=== PATIENT | female | born 1990 | race Caucasian/White ===

== ENCOUNTER → 2020-01-01 07:56 | Outpatient (CLI) | payer BC, SELFPAY ==
--- NOTE | 2020-01-01 | DI.US.S_ITS ---
PROCEDURE: US OB <= 14 WEEKS FETUS INDICATIONS: INITIAL SIZING AND DATING OUTSIDE/PRIOR DATING DATA: Last menstrual period (LMP): 11/15/19. LMP-based estimated date of delivery (CHRIS): 08/21/20 . First dating scan (date and location): This study, 01/01/20 . Estimated date of delivery (CHRIS) from first dating scan: 08/28/20, +/-7 days based on mean sac diameter . TECHNIQUE: Real-time scanning was performed of the fetus and maternal pelvic organs, with image documentation. Endovaginal scanning was also performed to better visualize the fetus and maternal ovaries. COMPARISON: None. FINDINGS: Mean sac diameter is 1.0 cm which correlates with a gestational age of 5 weeks 5 days, +/-7 days. Chorionic reaction is present at the endometrial lining. Embryo: Not yet seen. Measurement variability in dating: +/- 4 weeks by LMP, +/- 7 days by mean sac diameter (use before 6 weeks gestation if crown-rump length not able to be measured), +/- 5 days by crown-rump length (up to 8 weeks 6 days gestation), +/- 7 days by crown-rump length (up to 13 weeks 6 days gestation). Maternal organs: Ovaries appear normal considering gestational status. Limited images through the kidneys demonstrate no hydronephrosis. IMPRESSION: Gestational sac present, intrauterine fetus has not yet been identified. Follow up in 7-10 days is recommended. Dictated by: Richard Amador M.D. on 01/01/2020 at 13:33 Approved by: Richard Amador M.D. on 01/01/2020 at 13:51
== END ==
PROVIDERS: Family Provider Family Medicine; PCP Family Medicine; Referring Provider Family Medicine; Visit Provider Family Medicine
DX: Z36.87 Encounter for antenatal screening for uncertain dates (principal)
CPT/HCPCS: 76801

== ENCOUNTER → 2020-01-13 10:58 | Outpatient (CLI) | payer BC, SELFPAY ==
--- NOTE | 2020-01-13 | DI.US.S_ITS ---
PROCEDURE: US OB <= 14 WEEKS FETUS INDICATIONS: FOLLOW UP INITIAL SIZING AND DATING OUTSIDE/PRIOR DATING DATA: Last menstrual period (LMP): November 15, 2019. LMP-based estimated date of delivery (CHRIS): August 21, 2020 . First dating scan (date and location): January 01, 2020 . Estimated date of delivery (CHRIS) from first dating scan: August 28, 2020 . TECHNIQUE: Real-time scanning was performed of the fetus and maternal pelvic organs, with image documentation. Endovaginal scanning was also performed to better visualize the fetus and maternal ovaries. COMPARISON: [facility], OB <= 14 WEEKS FETUS, 01/01/2020, 8:40. FINDINGS: Embryo: There is a single intrauterine gestation with an estimated sonographic gestational age of approximately 6 weeks and 5 days based off mean gestational sac diameter of 1.8 cm. No crown-rump length/ pole identified. No yolk sac visualized. No perigestational hemorrhage. No cardiac activity visualized. Measurement variability in dating: +/- 4 weeks by LMP, +/- 7 days by mean sac diameter (use before 6 weeks gestation if crown-rump length not able to be measured), +/- 5 days by crown-rump length (up to 8 weeks 6 days gestation), +/- 7 days by crown-rump length (up to 13 weeks 6 days gestation). Maternal organs: A left corpus luteal cyst is again noted. Ovaries are otherwise unremarkable in appearance. Limited images through the kidneys demonstrate no hydronephrosis. IMPRESSION: 1. Single intrauterine gestation measuring approximately 6 weeks and 5 days based off mean gestational sac diameter. No pole, yolk sac, or cardiac activity visualized. Based on consensus criteria, findings are suspicious but not diagnostic for early failure. Recommend continued clinical surveillance and serial quantitative HCG levels to document expected rate of change. Follow-up imaging as needed. 2. Redemonstration of left ovarian corpus luteal cyst. Otherwise, unremarkable sonographic appearance of the bilateral ovaries. Dictated by: Maximino Franco M.D. on 01/13/2020 at 16:43 Approved by: Maximino Franco M.D. on 01/13/2020 at 16:49
== END ==
PROVIDERS: Family Provider Family Medicine; PCP Family Medicine; Referring Provider Family Medicine; Visit Provider Family Medicine
DX: Z36.87 Encounter for antenatal screening for uncertain dates (principal); N83.12 Corpus luteum cyst of left ovary
CPT/HCPCS: 76801

== ENCOUNTER → 2020-05-26 08:01 | Outpatient (CLI) | payer BC, SELFPAY ==
--- NOTE | 2020-05-26 | DI.US.S_ITS ---
PROCEDURE: US OB <= 14 WEEKS FETUS INDICATIONS: SIZE AND DATES OUTSIDE/PRIOR DATING DATA: Last menstrual period (LMP): 03/22/2020. LMP-based estimated date of delivery (CHRIS): 12/27/2020. First dating scan (date and location): 05/26/2020. Estimated date of delivery (CHRIS) from first dating scan: 01/18/2021. TECHNIQUE: Real-time scanning was performed of the fetus and maternal pelvic organs, with image documentation. Endovaginal scanning was also performed to better visualize the fetus and maternal ovaries. COMPARISON: [facility], OB <= 14 WEEKS FETUS, 01/13/2020, 11:51. FINDINGS: Embryo: Single intrauterine with crown-rump length measuring 4 mm corresponding to 6 weeks 1 day. heart tones are not identified. Measurement variability in dating: +/- 4 weeks by LMP, +/- 7 days by mean sac diameter (use before 6 weeks gestation if crown-rump length not able to be measured), +/- 5 days by crown-rump length (up to 8 weeks 6 days gestation), +/- 7 days by crown-rump length (up to 13 weeks 6 days gestation). Maternal organs: Ovaries demonstrate a right corpus luteal cyst. . IMPRESSION: Intrauterine with crown-rump length measuring 6 weeks 1 day. No heart tones are identified. While this could represent borderline time frame for detection of heart tones, demise cannot be excluded. Recommend correlation beta-hCG levels and short interval imaging follow-up in 5-7 days for detection of heart tone presence. Dictated by: Shakila Fernandez M.D. on 05/26/2020 at 9:05 Approved by: Shakila Fernandez M.D. on 05/26/2020 at 9:08
== END ==
PROVIDERS: PCP Family Medicine; Referring Provider Family Medicine; Visit Provider Family Medicine
DX: Z36.87 Encounter for antenatal screening for uncertain dates (principal); Z3A.01 Less than 8 weeks gestation of pregnancy
CPT/HCPCS: 76801; 76817

== ENCOUNTER → 2020-06-02 14:36 | Outpatient (CLI) | payer BC, SELFPAY ==
--- NOTE | 2020-06-02 | DI.US.S_ITS ---
PROCEDURE: US OB <= 14 WEEKS FETUS INDICATIONS: VIABILITY OUTSIDE/PRIOR DATING DATA: Last menstrual period (LMP): 03/22/20 LMP-based estimated date of delivery (CHRIS): 12/27/20. First dating scan (date and location): 05/26/20. Estimated date of delivery (CHRIS) from first dating scan: demise.. TECHNIQUE: Real-time scanning was performed of the fetus and maternal pelvic organs, with image documentation. Endovaginal scanning was also performed to better visualize the fetus and maternal ovaries. COMPARISON: [facility], OB <= 14 WEEKS FETUS, 05/26/2020, 8:42. [facility], OB <= 14 WEEKS FETUS, 01/13/2020, 11:51. FINDINGS: Embryo: Old [place]-rump length measures 0.4 cm, unchanged from the prior study. Current estimated gestational age by initial ultrasound is 7 weeks 1 day but crown-rump length yields an estimated current gestational age of 6 weeks 0 days, and the absence of cardiac activity and absence of growth over time indicates demise. Measurement variability in dating: +/- 4 weeks by LMP, +/- 7 days by mean sac diameter (use before 6 weeks gestation if crown-rump length not able to be measured), +/- 5 days by crown-rump length (up to 8 weeks 6 days gestation), +/- 7 days by crown-rump length (up to 13 weeks 6 days gestation). Maternal organs: Normal IMPRESSION: demise with current estimated gestational age from crown-rump length at 6.0 weeks, versus is projected gestational age from 1st OB ultrasound of 7 weeks 1 day. Dictated by: Richard Amador M.D. on 06/02/2020 at 16:02 Approved by: Richard Amador M.D. on 06/02/2020 at 16:04
== END ==
PROVIDERS: PCP Family Medicine; Referring Provider Family Medicine; Visit Provider Family Medicine
DX: O02.1 Missed abortion (principal)
CPT/HCPCS: 76801; 76817

== ENCOUNTER → 2020-09-14 12:38 | Outpatient (CLI) | payer BC, SELFPAY ==
--- NOTE | 2020-09-14 | DI.US.S_ITS ---
PROCEDURE: US PELVIC COMPLETE INDICATIONS: VAGINAL BLEEDING TECHNIQUE: Real-time scanning was performed of the pelvic organs, with image documentation. Additional endovaginal scanning was necessary due to incomplete visualization of the adnexal and endometrial structures by transabdominal scanning. COMPARISON: None. FINDINGS: Uterus: Uterus is normal in size at 4.5 x 5.6 x 5.4 cm. The endometrium measures 7 mm in combined thickness. Ovaries: The right and left ovary could be seen, measuring 2.1 x 4.2 x 2.4 cm on the right and 3.6 x 2.3 x 4.1 cm on the left. A mildly complex cyst is present at the right ovary measures 1.6 x 1.3 x 1.3 cm. Other: No pathologic free abdominal or pelvic fluid. IMPRESSION: Source of vaginal bleeding is not seen. Normal appearing uterus and endometrial lining. Incidental note is made of a presumed involuting follicular cysts, minimally complex at the right ovary measuring only 1.6 cm in maximal dimension. Dictated by: Richard Amador M.D. on 09/14/2020 at 14:56 Approved by: Richard Amador M.D. on 09/14/2020 at 14:59
== END ==
PROVIDERS: PCP Family Medicine; Referring Provider Family Medicine; Visit Provider Family Medicine
DX: N93.9 Abnormal uterine and vaginal bleeding, unspecified (principal); N83.291 Other ovarian cyst, right side
CPT/HCPCS: 76830; 76856

== ENCOUNTER → 2020-12-21 13:31 | Outpatient (CLI) | payer OTHER, SELFPAY ==
[2020-12-21 15:02] LABS: HCG Quantitative /Beta subunit 2681.8 mIU/mL
== END ==
PROVIDERS: PCP Family Medicine; Referring Provider Obstetrics & Gynecology; Visit Provider Obstetrics & Gynecology
DX: Z34.81 Encounter for supervision of other normal pregnancy, first trimester (principal)
CPT/HCPCS: 36415; 84702

== ENCOUNTER → 2020-12-23 13:18 | Outpatient (CLI) | payer OTHER, SELFPAY ==
[2020-12-23 15:03] LABS: HCG Quantitative /Beta subunit 6705.8 mIU/mL
== END ==
PROVIDERS: PCP Family Medicine; Referring Provider Obstetrics & Gynecology; Visit Provider Obstetrics & Gynecology
DX: Z34.81 Encounter for supervision of other normal pregnancy, first trimester (principal)
CPT/HCPCS: 36415; 84702

== ENCOUNTER → 2021-03-13 16:01 | Outpatient (CLI) | payer OTHER, SELFPAY ==
[2021-03-13 18:17] LABS: Add Manual Diff / Slide Review NO; Basophils Absolute Auto 0 /uL (0-100); Basophils Percent Auto 0.2 % (0-2); Eosinophils Absolute Auto 0 /uL (0-450); Eosinophils Percent Auto 0.3 % (2-4); Hematocrit 36.3 % (36-46); Hemoglobin 12.4 g/dL (12.0-16.0); Lymphocytes Absolute Auto 1500 /uL (1100-4500); Lymphocytes Percent Auto 22.5 % (25-40); Mean Corpuscular HGB Conc 34.2 % (30-36); Mean Corpuscular Hemoglobin 29.4 PG (26-34); Mean Corpuscular Volume 86.1 fL (80-100); Monocytes Absolute Auto 500 /uL (0-900); Monocytes Percent Auto 6.7 % (3-14); Neutrophils Absolute Auto 4800 /uL (1500-7000); Neutrophils Percent Auto 70.3 % (50-75); Platelet Count 171 X10^3/uL (150-400); Red Blood Cell Count 4.21 X10^6/uL (4.0-5.2); White Blood Cell Count 6.8 X10^3/uL (4.5-11.0)
[2021-03-13 18:54] LABS: Appearance Urine UA CLEAR; Bilirubin Urine UA NEGATIVE (NEGATIVE); Color Urine UA YELLOW; Glucose Urine UA NEGATIVE (Negative); Ketones Urine UA NEGATIVE (NEGATIVE); Leukocyte Esterase Urine UA NEGATIVE (NEGATIVE); Nitrite Urine UA NEGATIVE (Negative); Occult Blood Urine UA NEGATIVE (Negative); Protein Urine UA NEGATIVE (Negative); Specific Gravity Urine UA <=1.005 (1.000-1.035); Urobilinogen Urine UA 0.2 E.U./dL (0.2)
[2021-03-13 20:58] LABS: HIV 1 & 2 Ab/Ag 4th Gen Combo NEGATIVE (NEGATIVE); Hep C Virus Ab w/Reflex Quant NEGATIVE s/c (NEGATIVE); Hepatitis B Surface Antigen NEGATIVE s/c (NEGATIVE)
[2021-03-14 09:00] LABS: RPR Screen Non Reactive (Non Reactive)
[2021-03-14 18:14] LABS: Varicella IgG Antibody 152 index (Immune >165)
[2021-03-15 22:06] LABS: Calc Gestational Age Ultrasound (.); Estriol, Free 1.84 ng/mL (.); Inhibin A, Dimeric 121.62 pg/mL (.); Inhibin A, MoM 0.74 (.); Maternal Ethnicity Caucasian (.); Maternal Weight 138 lbs (.); Number of Fetuses No (.); OSBR Risk 1 IN 788 (.); Results Report (.); Test Results *Screen Negative* (.); hCG, MoM 1.78 (.); hCG, Serum 64202 mIU/mL (.)
== END ==
PROVIDERS: PCP Family Medicine; Referring Provider Obstetrics & Gynecology; Visit Provider Obstetrics & Gynecology
DX: Z34.82 Encounter for supervision of other normal pregnancy, second trimester (principal); Z3A.17 17 weeks gestation of pregnancy
CPT/HCPCS: 36415; 80055; 81003; 82105; 82677; 84702; 86336; 86787; 86803; 86850; 86900; 86901; 87086; 87389

== ENCOUNTER → 2021-04-18 14:06 | Outpatient (CLI) | payer OTHER, SELFPAY ==
--- NOTE | 2021-04-18 14:07 | DI.US.S_ITS ---
PROCEDURE: US OB >= 14 WEEKS FETUS INDICATIONS: 20 WEEK ANATOMY SCAN OUTSIDE/PRIOR DATING DATA: Last menstrual period (LMP): 11/14/2020. LMP-based estimated date of delivery (CHRIS): 08/21/2021. First dating scan (date and location): 02/09/2021. Estimated date of delivery (CHRIS) from first dating scan: 08/19/2021. The calculations are made using the ultrasound generated CHRIS of 08/19/2021. TECHNIQUE: Real-time scanning was performed of the fetus, with image documentation and biometric measurements. Endovaginal scanning: Not performed COMPARISON: None. FINDINGS: General: A single living intrauterine gestation is present. Presentation: Variable Placenta: Placental position is anterior , without previa. Amniotic fluid index: 12.9 cm, normal range is 5-24 cm. Single deepest vertical pocket is 3.8 cm. heart rate: 152 beats per minute. Maternal cervical canal: 4.1 cm long. Normal lower limit is 2.5 cm. biometrics: Biparietal diameter: 5.1 cm Head circumference: 20.3 cm Abdominal circumference: 16.3 cm Femur length: 3.6 cm Clinically estimated gestational age: 22 weeks 3 days Composite gestational age from present scan: 21 weeks 4 days Estimated weight and percentile: 423 g, 8th percentile Anatomic survey: Neuro: Ventricles are non-dilated at less than 10 mm. Cisterna magna is normal at 3-11 mm. Cerebellum is normal in size and morphology. Nuchal skin fold: Normal at less than 6 mm between 14-21 weeks gestational age. Face: Nose and lips, facial profile are normal. Spine: No evidence for spina bifida. Heart: 4-chambered heart is present, with normal ventricular outflow tracts. Diaphragm: Diaphragm is intact. Stomach: Left-sided stomach is present. Kidneys: No hydronephrosis. Normal is less than 5 mm in 2nd trimester, less than 7 mm in 3rd trimester. Cord: 3-vessel cord has orthotopic insertion. Bladder: Normal in size. Extremities: All 4 extremities identified. IMPRESSION: Single live intrauterine gestation with size less than dates. Estimated weight is at the 8th percentile. Femur length is at the 9th percentile. We strive to produce accurate, complete, and clear reports of imaging services. To assist us in improving patient care, this report was composed using standard report templates and voice recognition software. Therefore, it may contain abnormal punctuation, insertions and/or omissions. Occasional wrong-word or sound-alike substitutions may occur. Though we review the report and make efforts to correct it, we do recommend that the report be read carefully in proper context to recognize any text inaccuracies. Dictated by: Dl Espinal M.D. on 04/18/2021 at 21:43 Approved by: Dl Espinal M.D. on 04/18/2021 at 21:48
== END ==
PROVIDERS: PCP Family Medicine; Referring Provider Obstetrics & Gynecology; Visit Provider Obstetrics & Gynecology
DX: Z34.82 Encounter for supervision of other normal pregnancy, second trimester (principal); Z3A.21 21 weeks gestation of pregnancy
CPT/HCPCS: 76811

== ENCOUNTER → 2021-05-17 09:35 | Outpatient (CLI) | payer OTHER, SELFPAY ==
[2021-05-17 12:00] LABS: Hematocrit 34.6 % (36-46); Hemoglobin 12.1 g/dL (12.0-16.0)
[2021-05-17 13:12] LABS: GTT (PREG) 1 Hour PP 50gm Dose 71 mg/dL (76-139)
== END ==
PROVIDERS: PCP Family Medicine; Referring Provider Obstetrics & Gynecology; Visit Provider Obstetrics & Gynecology
DX: Z34.82 Encounter for supervision of other normal pregnancy, second trimester (principal); Z3A.25 25 weeks gestation of pregnancy
CPT/HCPCS: 36415; 82950; 85014; 85018

== ENCOUNTER → 2021-07-25 13:51 | Outpatient (CLI) | payer OTHER, SELFPAY ==
[2021-07-26 10:28] LABS: Strep Grp B PCR NEG for Grp B Strep
== END ==
PROVIDERS: PCP Family Medicine; Visit Provider Obstetrics & Gynecology
DX: Z36.85 Encounter for antenatal screening for Streptococcus B (principal); Z3A.36 36 weeks gestation of pregnancy
CPT/HCPCS: 87653

== ENCOUNTER 2021-08-21 12:33 | Outpatient (CLI) | payer OTHER, SELFPAY | END 2021-08-21 13:28 | disposition home or self-care (01) | LOC: OB 16:05 | PROVIDERS: PCP Family Medicine; Referring Provider Obstetrics & Gynecology; Visit Provider Obstetrics & Gynecology | DX: O41.03X0 Oligohydramnios, third trimester, not applicable or unspecified (principal); O48.0 Post-term pregnancy; Z3A.40 40 weeks gestation of pregnancy | CPT/HCPCS: 59025; G0378; G0379 ==

== ENCOUNTER 2021-08-23 07:21 | Observation (INO) | payer OTHER, SELFPAY | END 2021-08-23 07:25 | disposition home or self-care (01) | PROVIDERS: Admitting Provider Obstetrics & Gynecology; PCP Family Medicine; Referring Provider Obstetrics & Gynecology; Visit Provider Obstetrics & Gynecology | DX: O48.0 Post-term pregnancy (principal); Z3A.40 40 weeks gestation of pregnancy | CPT/HCPCS: G0378; G0379 ==

== ENCOUNTER 2021-08-24 07:16 | Inpatient (IN) | payer OTHER, SELFPAY ==
[2021-08-24] MEDS: LACTATED RINGERS 1,000 ML 100 ML IV ×2 (08:35→12:31)
[2021-08-24] MEDS: OXYTOCIN PREMIX 30 UNIT/500 ML PLAST..BAG IV (08:35)
[2021-08-24 08:44] LABS: Add Manual Diff / Slide Review NO; Basophils Absolute Auto 100 /uL (0-100); Basophils Percent Auto 0.7 % (0-2); Eosinophils Absolute Auto 100 /uL (0-450); Eosinophils Percent Auto 0.7 % (2-4); Hematocrit 35.6 % (36-46); Hemoglobin 12.7 g/dL (12.0-16.0); Lymphocytes Absolute Auto 1900 /uL (1100-4500); Lymphocytes Percent Auto 24.4 % (25-40); Mean Corpuscular HGB Conc 35.6 % (30-36); Mean Corpuscular Hemoglobin 31.5 PG (26-34); Mean Corpuscular Volume 88.3 fL (80-100); Monocytes Absolute Auto 700 /uL (0-900); Monocytes Percent Auto 8.5 % (3-14); Neutrophils Absolute Auto 5200 /uL (1500-7000); Neutrophils Percent Auto 65.7 % (50-75); Platelet Count 174 X10^3/uL (150-400); Red Blood Cell Count 4.04 X10^6/uL (4.0-5.2); Red Cell Distribution Width 13.2 % (11.6-14.8); White Blood Cell Count 7.9 X10^3/uL (4.5-11.0)
[2021-08-24 09:14] LABS: COVID19 -Nasal RAPID Negative (Negative)
--- NOTE | 2021-08-24 11:42 | P.HPOB_ITS ---
OB HPI Date/Time Date of admission: 08/24/21 Date Patient Seen: 08/24/21 Time Patient Seen: 07:30 History of Present Condition Chief complaint: INDUCTION CHRIS Calculator Estimated Delivery Date Method Current WG Current Estimate 08/21/21 LMP (Certain) 40w 3d Other Estimates 08/23/21 Ultrasound #1 40w 1d 08/19/21 Ultrasound #2 40w 5d Estimated Gestational Age (weeks): 40+3 : 3 Para: 0 care: good care, initiated at week # (12), number of visits (12) and pounds weight gain (23) Dating criteria OB: LMP confirmed by 1st trimester US Ultrasounds: normal 1st trimester US and normal mid trimester US Obstetrical complications: none Medical complications OB: none Indications Indication for induction OB: post dates (with oligo) Preadmission Labs Last OB Lab Results: Blood Type A Positive 08/24/21 08:00 08/24/21 Antibody Screen Negative 08/24/21 08:00 08/24/21 Hematocrit 35.6 % (36-46) L 08/24/21 08:00 08/24/21 Hemoglobin 12.7 g/dL (12.0-16.0) 08/24/21 08:00 08/24/21 Hepatitis B Surface Antigen Negative s/c (NEGATIVE) 03/13/21 17:04 03/13/21 Hepatitis C Antibody Negative s/c (NEGATIVE) 03/13/21 17:04 03/13/21 Rubella Antibody 117.0 IU/mL (>15) 03/13/21 17:04 03/13/21 Varicella-Zoster IgG Antibody 152 index (Immune >165) L 03/13/21 17:04 03/13/21 Glucose 1 Hour 71 mg/dL (76-139) L 05/17/21 10:06 05/17/21 Group B Streptococcus (PCR) Neg for grp b strep 07/25/21 13:51 07/25/21 -: Chlamydia screen: negative, Gonorrhea screen: negative and Urine: negative -: PAP smear: Normal Genetic Screens: Quad screen: Normal External Labs -: Urine: negative Prior (ies) Past Pregnancies Del. Date GA/Weeks Labor Lgth Wt Sex Route Outcome Anesthesia Place Delv Breastfeed Preg Comp Name 01/31/20 5 spontaneous 06/15/20 7 spontaneous Delivery Date: 01/31/20 Last Updated by: Sabrina Romero R.N. Completed on its own, but bled for over 1 month. Delivery Date: 06/15/20 Last Updated by: Sabrina Romero R.N. Had bleeding over a month, Rx'd OCPs to control bleeding/cycle. Evaluation Evaluation Baseline heart rate: 135 Variability: Moderate (11-25) monitor accelerations: Present Monitor Decelerations: Absent Contraction Frequency (minutes): 4 Uterine Contraction Intensity: Mild Status: Category l Dilation (cm): 4 Effacement (%): 85 station: 0 Position of cervix: mid [facility] Medical History (Updated 08/10/21 @ 12:49 by Mona Pfeiffer PA-C) Abnormal Pap smear of cervix (~2012) Acne (~2006) Concussion (~2010) Eczema (~2004) Gastric ulcer (~2010) Human papilloma virus (~2012) Plantar warts (~2009) Wears glasses Surgical History (Updated 01/20/21 @ 14:41 by Sabrina Romero RN) Anesthesia H/O colposcopy with cervical biopsy (~2013) [place] teeth removed (~2010) Family History (Updated 01/20/21 @ 14:47 by Sabrina Romero RN) Father Hyperlipidemia History of cholecystectomy Mother Lupe's disease Sister Pulmonary hypertension Grandfather Diabetes mellitus Stroke Alzheimer disease Grandfather Hypothyroidism Grandmother Brain tumor Grandmother No problems noted. Social History (System 11/01/17 @ 11:05 by Elvira Cooper) marital status: number of children: 0 household members: spouse and family (Lives on parents' property) lives independently: Yes caregiver/support person: No housing: house pets and animals: No education level: college (BA communications/business) occupational status: employed ([employer]) current occupational exposures/hazards: No mark/yarsani: [employer] special mark needs: No seatbelt use: always do you feel safe at home: Yes Smoking Status: Never smoker second hand exposure: No alcohol intake: former (Pre-: socially, 1-2x a week. ) substance use type: does not use during the past year weight has: remained stable well-balanced diet: daily or most days daily servings fruits/ve-4 caffeine: No Type(s) of exercise: bicycling (Pre-), other (paddleboarding), running (Pre-) and normal ROM and activity frequency: 3-4 times per week (previously, now only 2-3x/week) duration: 30-45 minutes/day Meds Home Medications and Allergies Home Medications Medication Instructions Recorded Confirmed Type Bacillus coagulans 10 billion cell cell PO DAILY cap 12/21/20 08/21/21 History capsule,delayed release (Probiotic (B. coagulans)) magnesium 200 mg tablet 200 mg PO DAILY 12/21/20 08/21/21 History prenat.vits,page,ydg-ejkx-uwesw 1 tab PO DAILY 12/21/20 08/21/21 History docosahexaenoic acid 200 mg mg PO 01/09/21 08/21/21 History capsule ( DHA) Allergies Allergy/AdvReac Type Severity Reaction Status Date / Time No Known Drug Allergies Allergy Verified 08/21/21 11:22 OB Exam Narrative Exam Narrative: Generally: Patient walking around in room, comfortable with contractions Lungs: Clear to auscultation bilaterally Cardiovascular: Regular rate and rhythm Abdomen: Gravid Fundal height: 40 cm Estimated weight: 7-1/2 lb Extremities: Trace edema, 1+ DTRs Objective Labs Result Diagrams: 08/24/21 08:00 Labs: Laboratory Results - last 24 hr 08/24/21 08/24/21 08/24/21 08:00 08:00 08:00 WBC 7.9 RBC 4.04 Hgb 12.7 Hct 35.6 L MCV 88.3 MCH 31.5 MCHC 35.6 RDW 13.2 Plt Count 174 Neut % (Auto) 65.7 Lymph % (Auto) 24.4 L Williamson % (Auto) 8.5 Eos % (Auto) 0.7 L Baso % (Auto) 0.7 Neut # (Auto) 5200 Lymph # (Auto) 1900 Williamson # (Auto) 700 Eos # (Auto) 100 Baso # (Auto) 100 SARS-CoV-2 (PCR) Negative Blood Type A Positive Antibody Screen Negative Assessment and Plan Assessment and Plan Assessment and Plan narrative: Assessment: 30-year-old 3 para 0 at 40-,3/7 weeks gestation for induction of labor with Pitocin GBS negative Plan: Pitocin per protocol 2 Artificial rupture of membranes with small amount of clear amniotic fluid Epidural as necessary Expected management to spontaneous vaginal delivery Time Spent with Patient Total time spent with greater than 50% in coordination of care (as documented) at patient's floor/unit and/or counseling patient:: 15-24 minutes
[2021-08-24] MEDS: FENT 2MCG/ML BUPIV 0.125% EPI 200 MCG/100 ML PLAST..BAG 2 MCG EPIDURAL (13:30)
[2021-08-24 14:19] VITALS: BP 110/62
--- NOTE | 2021-08-24 16:10 | PM.AN.REGBLK ---
Regional Block Pre-procedure Procedure: Continuous Lumbar Epidural for L&D Attending OB provider: Padmini Bingham PMH/ROS narrative: term labor, no complications ASA Class: II Labs: Hct 35.6 % (36-46) L 08/24/21 08:00 Plt Count 174 X10^3/uL (150-400) 08/24/21 08:00 Medications: Current Medications Generic Name Dose Route Start Last Admin Trade Name Freq PRN Reason Stop Dose Admin Calcium Carbonate 1,000 mg 08/24/21 07:49 Calcium Carbonate 500 Mg Tab PO Q2HR PRN Dyspepsia Carboprost Tromethamine 250 mcg 08/24/21 07:49 Carboprost 250 Mcg/Ml Ampul IM Q90M PRN Bleeding Diphenhydramine HCl 25 mg 08/24/21 13:19 Diphenhydramine 50 Mg/Ml Vial IV Q10M PRN Pruritis Fentanyl 50 mcg 08/24/21 07:49 Fentanyl 100 Mcg/2 Ml Inj IV Q1H PRN Pain, Moderate (4-6) Lactated Ringer's 1,000 mls @ 100 mls/hr 08/24/21 08:00 08/24/21 12:31 Lactated Ringers IV 100 mls/hr CONT ADRIENNE Administration Oxytocin/Lactated Ringer's 30 unit in 500 mls @ 200 mls/hr 08/24/21 07:49 Oxytocin Premix IV CONT PRN Bleeding Protocol Tranexamic Acid 1,000 mg/ 100 mls @ 200 mls/hr 08/24/21 07:49 Sodium Chloride IV NOW PRN Bleeding Oxytocin/Lactated Ringer's 30 unit in 500 mls @ 3 mls/hr 08/24/21 08:00 08/24/21 08:35 Oxytocin Premix IV 3 milliunit/min TITRATE ADRIENNE 3 mls/hr Administration Protocol 3 MILLIUNIT/MIN FENT 2MCG/ML BUPIV 0.125% EPI 200 mcg in 100 mls @ 6 mls/hr 08/24/21 13:30 Fentanyl/Bupiv/Ns 2mcg/Ml - 0.125% EPIDURAL CONT ADRIENNE Methylergonovine Maleate 0.2 mg 08/24/21 07:49 Methylergonovine 0.2 Mg Tablet PO Q6HR PRN Heavy Bleeding Methylergonovine Maleate 0.2 mg 08/24/21 07:49 Methylergonovine 0.2 Mg/Ml Vial IM NOW PRN Bleeding Metoclopramide HCl 10 mg 08/24/21 07:49 Metoclopramide 10 Mg/2 Ml Inj IV NOW PRN Nausea And Vomiting Misoprostol 800 mcg 08/24/21 07:49 Misoprostol 200 Mcg Tablet KS NOW PRN Bleeding Misoprostol 1,000 mcg 08/24/21 07:49 Misoprostol 200 Mcg Tablet KS NOW PRN Bleeding Misoprostol 400 mcg 08/24/21 07:49 Misoprostol 200 Mcg Tablet SL NOW PRN Bleeding Nalbuphine HCl 2.5 mg 08/24/21 13:19 Nalbuphine 20 Mg/Ml Ampul IV Q10M PRN Pruritis Naloxone HCl 0.2 mg 08/24/21 07:49 Naloxone 0.4 Mg/Ml Vial IV Q2MIN PRN Opiate Reversal Oxytocin 10 unit 08/24/21 07:49 Oxytocin 10 Unit/Ml Vial IM NOW PRN Bleeding Allergies: Allergies Allergy/AdvReac Type Severity Reaction Status Date / Time No Known Drug Allergies Allergy Verified 08/21/21 11:22 Procedure Insertion date: 08/24/21 Insertion time: 13:05 Prep/Local: betadine x3 and 1% lidocaine Interspace: L3-4 Patient position: sitting Needle: 18 gauge Helen (CSE: 27g Pencan through karmen Cervantes CSF, 1mL 0.25% MPF bupiv) Loss of resistance with: saline MOSES at (cm): 4 Catheter placed at SKIN (cm): 9 Catheter in SPACE (cm): 5 Insertion: No CSF, No Blood, No Paresthesia with insertion, No Paresthesia with injection and No Test dose reaction Initial Medications TEST DOSE time: 13:06 TEST DOSE: 1.5% lidocaine with epinephrine 1:200k (mL): 3 BOLUS DOSE time: 13:19 BOLUS DOSE (mL): 3 BOLUS DOSE med: other (infusate) Infusion INFUSION: 0.125% bupivacaine and with fentanyl 2 mcg/mL Initial rate (mL/hr): 6 Subsequent interventions: 19:10 5mL 2-chloroprocaine Post-procedure Anesthesia time START: 13:00 Anesthesia time END: 21:00 Post-procedure Anesthesia Assessment: Yes CV function: HR/BP stable, Yes Resp function: RR/sat/airway adequate, Yes Mental status appropriate and No Anesthesia complications
--- NOTE | 2021-08-24 17:52 | PM.OBPNLAB ---
Date/Time Date Patient Seen: 08/24/21 Time Patient Seen: 17:52 Pain Control Pain control: epidural Pelvic Exam Dilation (cm): 9 Effacement (%): 100 station: 0 Amniotic membrane status: Ruptured Contractions Contractions on admission: irregular Monitor mode: External Pitocin rate (mU/min): 0 Contraction frequency (min): 3 Contraction duration (min): 1 Contraction pattern: Regular Contraction intensity: Strong/Firm Status status: Category l Heart Rate Baseline: 135 Monitor Accelerations: Present Monitor Decelerations: Absent Monitor Variability: Moderate Assessment and Plan Assessment: active labor Comments: Hands/knees Stop pushing
[2021-08-24] MEDS: ONDANSETRON 4 MG/2 ML INJ IV (19:36)
--- NOTE | 2021-08-24 22:00 | PM.OBPRVD ---
Events: Labor Induction Labor & Delivery Delivery date: 08/24/21 Cervical ripening method: none Induction method: per pitocin protocol Delivery augmentation: rupture of membranes Delivery monitor: external FHT and external uterine Route of delivery: Episiotomy description: None L&D Laceration Description: Perineal - 2nd Degree and Vaginal - 2nd Degree Delivery repair: vicryl and chromic Estimated blood loss (mL): 150 Quantitative Blood Loss: 150 Anesthesia Type: Epidural Complications: None Narrative: Patient complete and pushed for 2-1/2 hours. At 9:00 p.m., a live female infant delivered in the EMILY presentation over an intact perineum. No nuchal cord. The remainder of the body delivered without difficulty, with left arm up near the face, and was placed on mom's abdomen. After the cord stopped pulsing, the cord was double clamped and cut. Pitocin was given in the IV fluids. Cord bloods were obtained. The placenta delivered intact with a three-vessel cord at 9:12 p.m.. Fundus was massaged to firm. A second-degree vaginal/perineal laceration was repaired in the usual fashion. Estimated blood loss 150 cc. Apgars 8 at 1 minute and 9 at 5 minutes. weight 7 lb 15.8 oz. epidural analgesia. . Mom and stable to recovery. Baby 1: gender: Female Presentation: compound (Left arm near the face) Position: Left Occiput Anterior Placenta delivery description: Spontaneous Cord Vessel Description: 3 Vessels score (1 min): 8 score (5 min): 9 weight: 7 lb 15.8 oz Plan for aftercare: Routine care
[2021-08-25] MEDS: ACETAMINOPHEN 325 MG TABLET 650 MG PO ×3 (00:49→17:58)
[2021-08-25] MEDS: IBUPROFEN 600 MG TABLET PO ×3 (00:49→17:58)
[2021-08-25] MEDS: DERMOPLAST SPRAY 20% 60 ML 1 SPRAY TOP (00:49)
[2021-08-25 07:12] LABS: Hematocrit 35.1 % (36-46); Hemoglobin 12.2 g/dL (12.0-16.0)
[2021-08-25] MEDS: DOCUSATE 100 MG CAPSULE PO (10:06)
[2021-08-25] MEDS: PRENATAL VIT,CALC/IRON/FOLIC 1 TABLET 1 TAB PO (10:06)
--- NOTE | 2021-08-25 15:25 | PM.OBPN.1 ---
Subjective - OB Subjective Patient comments: no complaints and pain well controlled baby status: doing well and nursing well feeding status: exclusively breast feeding Date Patient Seen: 08/25/21 Time Patient Seen: 15:25 Exam Narrative Exam Narrative: Generally: Mom sitting up in bed, holding infant, no acute distress Fundus: Firm at U -1 Extremities: Trace edema, negative Homans Objective Labs Result Diagrams: 08/25/21 06:00 Labs: Laboratory Results - last 24 hr 08/25/21 06:00 Hgb 12.2 Hct 35.1 L Assessment & Plan Plan day: 1 plan OB: routine care Time Spent With Patient Time: Total time spent is greater than 50% in coordination of care (as documented) at patient's floor/unit and/or counseling patient: Time with patient: 25 - 35 minutes
[2021-08-25 20:17] VITALS: BP 110/62; PULSE 80; RESP 17; TEMP 36.1
--- NOTE | 2021-08-26 08:15 | PM.OBDS.1 ---
Discharge Providers Provider Date of admission: 08/24/21 07:16 Discharge Date: 08/25/21 Primary care physician: Raimundo Mills MD Consults: 08/25/21 21:57 Consult to Assistant Research Scientist Routine Comment: Discharge provider: Padmini Bingham MD Summary Hospital Course Date Patient Seen: 08/26/21 Time Patient Seen: 14:00 Diagnoses: 40-,4/7 weeks gestation Induction of labor with Pitocin Artificial rupture of membranes Epidural analgesia Spontaneous vaginal delivery Second-degree vaginal/perineal laceration and repair Hospital Course: Patient is a 30-year-old 3 para 1 who presented for induction of labor with Pitocin on August 24, 2021. She was started on Pitocin and was at 3-4 cm dilated. Artificial rupture of membranes was performed. She received an epidural for pain management. She progressed to complete dilation and pushed for 2-1/2 hours. She had a spontaneous vaginal delivery without complication. She had a second-degree vaginal/perineal laceration that was repaired. Her course was unremarkable and she was discharged home on day # 1 Peripartum Data Infant Delivery Method: Natural Vaginal Laceration Description: Perineal - 2nd Degree and Vaginal - 2nd Degree Episiotomy description: None Procedures: Pitocin induction of labor Artificial rupture of membranes Spontaneous vaginal delivery Second-degree perineal/vaginal laceration repair complications: none 1: Gender: Female Disposition of : home Status at Discharge Cognitive/behavioral status at discharge: oriented Functional status at discharge: independent ambulation Overall status at discharge: patient is progressing back to baseline Time Spent with Patient Time attestation: Total time spent providing and/or coordinating discharge services: Time spent: Less than 30 minutes Objective Labs Result Diagrams: 08/25/21 06:00 Exam Narrative Exam Narrative: Generally: Patient is sitting up in bed, holding , no acute distress Fundus: Firm at U -1 Extremities: Negative Homans, trace edema Discharge Plan Discharge Plan Patient Disposition: Home Provider Discharge Comment: Call with fever, chills, or bleeding vaginally more than a pad an hour Ibuprofen 600 mg every 6 hours as needed for cramping Tylenol 650 mg every 6 hours as needed Stool softener as needed Discharge orders & Medications Prescriptions: Continued prenat.vits,page,wtn-usjw-bpolj Tablet 1 tab PO DAILY 0RF magnesium 200 mg tablet 200 mg PO DAILY 0RF Probiotic (B. coagulans) 10 billion cell capsule,delayed release(DR/EC) PO DAILY 0RF DHA 200 mg capsule PO 0RF Follow up/Referrals: Padmini Bingham MD [Physician] - 10/04/21 3:15 am Diet/Activity/Treatments Diet: Regular Activity: Nothing in the vagina for 6 weeks Skin/Wound/Dressing Care Report to your healthcare provider any signs of infection, such as:: chills, fever, increased pain, unusual drainage and unusual redness Visit Report/Discharge Packet Instructions: DI for Labor and Delivery, Vaginal Stand Alone Forms: Discharge: Care Discharge Data Primary Care Provider: Raimundo Mills
== END 2021-08-25 23:00 | disposition home or self-care (01) | DRG 807 ==
PROVIDERS: Admitting Provider Obstetrics & Gynecology; PCP Family Medicine; Referring Provider Obstetrics & Gynecology; Visit Provider Obstetrics & Gynecology
DX: O48.0 Post-term pregnancy (principal); Z37.0 Single live birth; Z3A.40 40 weeks gestation of pregnancy; O70.1 Second degree perineal laceration during delivery; O32.2XX0 Maternal care for transverse and oblique lie, not applicable or unspecified; Z20.822 Contact with and (suspected) exposure to COVID-19
CPT/HCPCS: 01967; 36415; 59050; 59400; 85014; 85018; 85025; 86850; 86900; 86901; 87635; C9803; G0379; J2405; J2590

== ENCOUNTER → 2022-09-17 14:17 | Outpatient (CLI) | payer OTHER, SELFPAY ==
[2022-09-17 17:16] LABS: HCG Quantitative /Beta subunit 779.4 mIU/mL
== END ==
PROVIDERS: PCP Family Medicine; Referring Provider Obstetrics & Gynecology; Visit Provider Obstetrics & Gynecology
DX: N91.2 Amenorrhea, unspecified (principal); N96 Recurrent pregnancy loss
CPT/HCPCS: 36415; 84144; 84702

== ENCOUNTER → 2022-09-19 14:34 | Outpatient (CLI) | payer OTHER, SELFPAY ==
[2022-09-19 16:06] LABS: HCG Quantitative /Beta subunit 1490.9 mIU/mL
== END ==
PROVIDERS: PCP Family Medicine; Referring Provider Obstetrics & Gynecology; Visit Provider Obstetrics & Gynecology
DX: N91.2 Amenorrhea, unspecified (principal); N96 Recurrent pregnancy loss
CPT/HCPCS: 36415; 84702

== ENCOUNTER → 2023-01-03 09:39 | Outpatient (CLI) | payer OTHER, SELFPAY ==
--- NOTE | 2023-01-03 | DI.US.S_ITS ---
PROCEDURE: US OB >= 14 WEEKS FETUS INDICATIONS: 20WK ANATOMY SCAN OUTSIDE/PRIOR DATING DATA: Last menstrual period (LMP): 08/15/2022 LMP-based estimated date of delivery (CHRIS): 05/22/2023 TECHNIQUE: Real-time scanning was performed of the fetus, with image documentation and biometric measurements. Endovaginal scanning: Not performed. COMPARISON: [facility], , OB >= 14 WEEKS FETUS, 08/21/2021, 12:25. FINDINGS: General: A single living intrauterine gestation is present. Presentation: Vertex Placenta: Placental position is posterior, without previa. Amniotic fluid index: 10.4 cm, normal range is 5-24 cm. Single deepest vertical pocket is 3.9 cm. heart rate: 140 beats per minute. Maternal cervical canal: 4.6 cm long. Normal lower limit is 2.5 cm. biometrics: Biparietal diameter: 4.7 cm, 20 weeks 2 days Head circumference: 18.0 cm, 20 weeks 3 days Abdominal circumference: 14.6 cm, 20 weeks 0 days Femur length: 3.2 cm, 19 weeks 6 days Clinically estimated gestational age: 20 weeks 1 day Composite gestational age from present scan: 20 weeks 1 day Estimated weight and percentile: 323 grams, 35th percentile Anatomic survey: Neuro: Ventricles are non-dilated at less than 10 mm. Cisterna magna is normal at 3-11 mm. Cerebellum is normal in size and morphology. Nuchal skin fold: Normal at less than 6 mm between 14-21 weeks gestational age. Face: Nose and lips, facial profile are normal. Spine: No evidence for spina bifida. Heart: 4-chambered heart is present, with normal ventricular outflow tracts. Diaphragm: Diaphragm is intact. Stomach: Left-sided stomach is present. Kidneys: No hydronephrosis. Normal is less than 5 mm in 2nd trimester, less than 7 mm in 3rd trimester. Cord: 3-vessel cord has orthotopic insertion. Bladder: Normal in size. Extremities: All 4 extremities identified. IMPRESSION: 1. Single live intrauterine with appropriate interval growth. 2. anatomic survey is within normal limits. We strive to produce accurate, complete, and clear reports of imaging services. To assist us in improving patient care, this report was composed using standard report templates and voice recognition software. Therefore, it may contain abnormal punctuation, insertions and/or omissions. Occasional wrong-word or sound-alike substitutions may occur. Though we review the report and make efforts to correct it, we do recommend that the report be read carefully in proper context to recognize any text inaccuracies. Approved by: Omari De La Rosa M.D. on 01/03/2023 at 13:45
== END ==
PROVIDERS: PCP Family Medicine; Referring Provider Nurse Practitioner Obstetrics & Gynecology; Visit Provider Nurse Practitioner Obstetrics & Gynecology
DX: Z34.92 Encounter for supervision of normal pregnancy, unspecified, second trimester (principal); Z3A.20 20 weeks gestation of pregnancy
CPT/HCPCS: 76811

== ENCOUNTER 2023-05-24 07:58 | Inpatient (IN) | payer OTHER, SELFPAY ==
[2023-05-24 08:07] VITALS: BP 132/77
--- NOTE | 2023-05-24 08:21 | PM.OBHP.1 ---
OB HPI Date/Time Date of admission: 05/24/23 Date Patient Seen: 05/24/23 Time Patient Seen: 08:00 History of Present Condition Chief complaint: ACTIVE LABOR : 4 Para: 1 Estimated Date of Delivery: 05/22/23 Estimated Gestational Age (weeks): 40w2d Narrative: Cheri Villa is a 32 year old female, @ 40w2d by sure LMP concordant with 8w US presenting for evaluation of labor. Contractions started last night and have since then increased in intensity and frequency to 3-4min, moderate intensity. movement felt. Denies leaking of fluids or vaginal bleeding. Interested in low-intervention vaginal . Costa VIDAL, at bedside providing support. Uncomplicated care followed by CNMs. History of Present care: good care, initiated at week # (8w6d), number of visits (10) and pounds weight gain (30) Dating criteria: LMP confirmed by 1st trimester US Ultrasounds: normal mid trimester US Obstetrical complications: none Medical complications: none Preadmission Labs Blood type: A (+) positive -: Antibody screen: negative, GBS status: negative, HBsAG: negative, HIV: negative and RPR/VDLR: negative -: Chlamydia screen: not detected and Gonorrhea screen: not detected -: Rubella: immune and Varicella: immune HCT: 37.1 HCAB: negative PAP: Normal Cell-free DNA: negative Urine: normal 1 hr GTT: 85 Narrative: MsAFP negative Prior (ies) History: SAB x2 (2019, 2020); (2021) w/2nd degree lac and bladder prolapse Evaluation Evaluation Baseline heart rate: 140 Variability: Moderate (11-25) monitor accelerations: Present Monitor Decelerations: Absent Uterine Contraction Intensity: Moderate Status: Category l Dilation (cm): 7 Effacement (%): 90 Dilation: >/=5 cm Effacement: >/=80% station: -2 Position of cervix: anterior Consistency: soft [place] score: 11 Comments: Bulging bag of water [facility] Medical History Amenorrhea following discontinuation of oral contraceptive use Concussion (~2010) Wears glasses Plantar warts (~2009) Eczema (~2004) Acne (~2006) Human papilloma virus (~2012) Abnormal Pap smear of cervix (~2012) Gastric ulcer (~2010) Surgical History H/O colposcopy with cervical biopsy (~2013) Anesthesia [place] teeth removed (~2010) Family History Father Hyperlipidemia History of cholecystectomy Mother Lupe's disease Sister Pulmonary hypertension Grandfather Diabetes mellitus Stroke Alzheimer disease Grandfather Hypothyroidism Grandmother Brain tumor Grandmother No problems noted. Social History marital status: number of children: 0 household members: spouse and family (Lives on parents' property) lives independently: Yes caregiver/support person: No housing: house pets and animals: No education level: college ([employer]/business) occupational status: employed ([employer]) current occupational exposures/hazards: No mark/zoroastrian: Catholic special mark needs: No seatbelt use: always do you feel safe at home: Yes Smoking Status: Never smoker second hand exposure: No alcohol intake: former (Pre-: socially, 1-2x a week. ) substance use type: does not use during the past year weight has: remained stable well-balanced diet: daily or most days daily servings fruits/ve-4 caffeine: No Type(s) of exercise: bicycling (Pre-), other (paddleboarding), running (Pre-) and normal ROM and activity frequency: 3-4 times per week (previously, now only 2-3x/week) duration: 30-45 minutes/day Meds Home Medications and Allergies Home Medications Medication Instructions Recorded Confirmed Type Bacillus coagulans 10 billion cell cell PO DAILY 12/21/20 05/22/22 History capsule,delayed release (Probiotic (B. coagulans)) magnesium 200 mg tablet 200 mg PO DAILY 12/21/20 05/24/23 History prenat.vits,page,lcv-wcir-qhtmg 1 tab PO DAILY 12/21/20 05/24/23 History docosahexaenoic acid 200 mg mg PO 01/09/21 05/22/22 History capsule ( DHA) progesterone micronized 200 mg 200 mg PO BEDTIME #30 caps 09/17/22 Rx capsule (Prometrium) ondansetron 4 mg disintegrating 4 mg PO Q6H PRN nausea and 10/03/22 Rx tablet vomiting #20 tabs Allergies Allergy/AdvReac Type Severity Reaction Status Date / Time No Known Drug Allergies Allergy Verified 05/22/22 14:19 Review of Systems Review of Systems ROS: Yes All systems reviewed with the patient and are negative except as otherwise documented OB Exam Vital signs Blood Pressure: 132/77 Pulse Rate: 104 Temperature: 97.0 F Resp Effort & Inspection: normal respiratory effort and able to speak in complete sentences Auscultation: clear to auscultation bilaterally Cardio Rate: regular rate Rhythm: regular rhythm Presentation: vertex Assessment and Plan Assessment and Plan Assessment and Plan narrative: A: Term primip Active labor GBS negative Rh positive FHR Cat 1 P: Admit with routine labs/orders Appropriate for to intermittent auscultation as desired Provide labor support as needed Reassess in 4hr or sooner prn
[2023-05-24 08:53] VITALS: BP 132/77; PULSE 104; TEMP 36.1
[2023-05-24 09:27] LABS: Add Manual Diff / Slide Review NO; Basophils Absolute Auto 0 /uL (0-100); Basophils Percent Auto 0.3 % (0-2); Eosinophils Absolute Auto 100 /uL (0-450); Eosinophils Percent Auto 0.4 % (2-4); Hematocrit 38.7 % (36-46); Hemoglobin 13.5 g/dL (12.0-16.0); Lymphocytes Absolute Auto 1700 /uL (1100-4500); Lymphocytes Percent Auto 12.8 % (25-40); Mean Corpuscular HGB Conc 34.9 % (30-36); Mean Corpuscular Hemoglobin 31.4 PG (26-34); Monocytes Absolute Auto 900 /uL (0-900); Monocytes Percent Auto 7.1 % (3-14); Neutrophils Absolute Auto 10400 /uL (1500-7000); Neutrophils Percent Auto 79.4 % (50-75); Platelet Count 205 X10^3/uL (150-400); Red Cell Distribution Width 13.7 % (11.6-14.8); White Blood Cell Count 13.1 X10^3/uL (4.5-11.0)
[2023-05-24] MEDS: ONDANSETRON 4 MG/2 ML INJ IV ×2 (10:02→10:34)
[2023-05-24] MEDS: LACTATED RINGERS 1,000 ML 100 ML IV ×2 (10:53→12:09)
--- NOTE | 2023-05-24 11:46 | PM.AN.REGBLK ---
Regional Block Pre-procedure Procedure: Continuous Lumbar Epidural for L&D Attending OB provider: Hailey Dickerson PMH/ROS narrative: 32yo F full-term in labor requesting epidural. See pre-anesthesia assessment for further details. PSH/Anesthesia history narrative: Prior epidural didn't work well ASA Class: II Labs: Hct 38.7 % (36-46) 05/24/23 09:18 Plt Count 205 X10^3/uL (150-400) 05/24/23 09:18 Medications: Current Medications Generic Name Dose Route Start Last Admin Trade Name Freq PRN Reason Stop Dose Admin Calcium Carbonate 1,000 mg 05/24/23 08:17 Calcium Carbonate 500 Mg Tab PO Q4HR PRN Dyspepsia Carboprost Tromethamine 250 mcg 05/24/23 08:17 Carboprost 250 Mcg/Ml Ampul IM Q90M PRN Bleeding Diphenhydramine HCl 25 mg 05/24/23 11:42 Diphenhydramine 50 Mg/Ml Vial IV Q10M PRN Pruritis Ephedrine Sulfate 5 mg 05/24/23 11:42 Ephedrine 50 Mg/Ml Vial IV Q5M PRN Blood pressure decrease more than 20% of baseline. Oxytocin/Lactated Ringer's 30 unit in 500 mls @ 200 mls/hr 05/24/23 08:17 Oxytocin Premix IV CONT PRN Bleeding Protocol Tranexamic Acid 1,000 mg/ 100 mls @ 200 mls/hr 05/24/23 08:17 Sodium Chloride IV NOW PRN Bleeding Lactated Ringer's 1,000 mls @ 100 mls/hr 05/24/23 08:30 05/24/23 10:53 Lactated Ringers IV 100 mls/hr CONT ADRIENNE Administration FENT 2MCG/ML BUPIV 0.125% EPI 200 mcg in 100 mls @ 6 mls/hr 05/24/23 11:45 Fentanyl/Bupiv/Ns 2mcg/Ml - 0.125% EPIDURAL CONT ADRIENNE Lidocaine HCl 20 ml 05/24/23 08:17 Lidocaine 1% 20 Ml INJ INTRA-OP PRN Post Delivery Methylergonovine Maleate 0.2 mg 05/24/23 08:17 Methylergonovine 0.2 Mg Tablet PO Q6HR PRN Heavy Bleeding Methylergonovine Maleate 0.2 mg 05/24/23 08:17 Methylergonovine 0.2 Mg/Ml Vial IM NOW PRN Bleeding Misoprostol 800 mcg 05/24/23 08:17 Misoprostol 200 Mcg Tablet NE NOW PRN Bleeding Misoprostol 400 mcg 05/24/23 08:17 Misoprostol 200 Mcg Tablet SL NOW PRN Bleeding Nalbuphine HCl 2.5 mg 05/24/23 11:42 Nalbuphine 20 Mg/Ml Ampul IV Q10M PRN Pruritis Naloxone HCl 0.2 mg 05/24/23 08:17 Naloxone 0.4 Mg/Ml Vial IV Q2MIN PRN Opiate Reversal Ondansetron HCl 4 mg 05/24/23 08:17 05/24/23 10:34 Ondansetron 4 Mg/2 Ml Inj IV 4 mg Q4HR PRN Administration Nausea And Vomiting Oxytocin 10 unit 05/24/23 08:17 Oxytocin 10 Unit/Ml Vial IM NOW PRN Bleeding Allergies: Allergies Allergy/AdvReac Type Severity Reaction Status Date / Time No Known Drug Allergies Allergy Verified 05/22/22 14:19 Procedure Insertion date: 05/24/23 Insertion time: 11:31 Prep/Local: 1% lidocaine (Chloraprep) Interspace: L4-5 Patient position: sitting Needle: 18 gauge Hustead Loss of resistance with: saline MOSES at (cm): 5 Catheter placed at SKIN (cm): 13 Catheter in SPACE (cm): 8 Insertion: Yes CSF, No Blood, No Paresthesia with insertion, No Paresthesia with injection and No Test dose reaction Initial Medications TEST DOSE time: 11:34 TEST DOSE: 1.5% lidocaine with epinephrine 1:200k (mL): 3 BOLUS DOSE time: 11:36 BOLUS DOSE (mL): 2 BOLUS DOSE med: other (1.5% lido with epi. CSE done prior at 11:32 with 0.4 ml of 0.75% bupivacaine (PF for spinal)) Infusion INFUSION: 0.125% bupivacaine and with fentanyl 2 mcg/mL Initial rate (mL/hr): 10 Subsequent interventions: 11:50 Ephedrine for low BP. KR 11:58 Fentanyl 100 mcg given via epidural for continued contraction pain. KR 12:06 Epidural infusion started at 10 ml/hr, 5 ml bolus q15 max. Post-procedure Anesthesia date START: 05/24/23 Anesthesia time START: 11: Anesthesia date END: 05/24/23 Anesthesia time END: 14:43 Post-procedure Anesthesia Assessment: Yes CV function: HR/BP stable, Yes Resp function: RR/sat/airway adequate, Yes Post-op hydration adequate, Yes Pain control adequate, Yes Nausea & vomiting absent, Yes Temperature > 36 C, Yes Mental status appropriate and No Anesthesia complications
--- NOTE | 2023-05-24 12:06 | PM.OBPNLAB ---
Date/Time Date Patient Seen: 05/24/23 Time Patient Seen: 12:40 Pain Control Pain control: epidural Comments: Cheri is laboring in bed with epidural with intense contractions every 2 minutes; finally comfortable with epidural. Does not have urge to push yet. FOB and CNM at bedside for labor support. VS: -128\63 -95 -SpO2 99% -36.6 C Pelvic Exam Dilation (cm): 10 Effacement (%): 100 station: 0 Amniotic membrane status: Ruptured (clear fluid) Contractions Monitor mode: External Pitocin rate (mU/min): 0 Contraction frequency (min): 2 Contraction duration (min): 1 Contraction pattern: Regular Contraction intensity: Strong/Firm Status status: Category l Heart Rate Baseline: 110 Monitor Accelerations: Present Monitor Decelerations: Late and Variable Monitor Variability: Moderate Assessment and Plan Assessment: active labor Plan: continuous present management Comments: at term 2nd stage labor Anticipate
[2023-05-24] MEDS: OXYTOCIN PREMIX 30 UNIT/500 ML PLAST..BAG 200 UNIT IV (14:48)
--- NOTE | 2023-05-24 15:37 | PM.OBPRVD ---
Labor & Delivery Delivery date: 05/24/23 Intrapartal Events: None Delivery monitor: external FHT Route of delivery: L&D Laceration Description: None Quantitative Blood Loss: 292 Complications: none Narrative: Cheri Villa is a 32yo, female, now P2 @ 40w2d based on LMP concordant with 8w US who presented for evaulation of labor. Found to be in active labor with contractions every 3-4min, moderate intensity. Cervix was 7/90/-2, soft, anterior with intact membranes. Continuous monitoring was category I and switched to intermittent auscultation. Anesthesia type: Nitrous oxide followed by epidural. Support provided by , CNM and SNM. Labor progressed well. Spontaneous rupture of clear membranes occurred at 0949. Cheri did not feel urge to push and upon CE was found to be complete at 1234. Bladder straight cathed and then initially coached through pushes and then independently pushing for a short 2nd stage. FHR was Cat 2 (moderate variability, early, late decelerations with return to baseline) throughout 2nd stage. NSVB of baby in EMILY position at 1443, no nuchal cord, shoulders delivered easily. Baby was placed on maternal abdomen when Cheri was ready to receive, and thrilled to meet her 2nd daughter. Apgars of 9, 9 @ 1 and 5 minutes respectively. They remained skin to skin while cord was cut and placenta was delivered at 1456. Placenta delivered spontaneously with maternal efforts and gentle cord traction and appeared to be intact. 3 vessel cord clamped and cut by FOB at 10 minutes of life after cord pulsing had stopped. Cord blood collected for blood typing. Perineum inspected and found to have intact perineum and tiny, homeostatic laceration at introitus, no repair needed. Blood loss measured is 292 mL. Mom and baby left stable and is being initiated. Cheri and Costa are thrilled to meet their baby girl. Bonita SEGOVIA, CNM, IBCLC Baby 1: Infant gender: Female Presentation: compound (Left arm near the face) Position: Right Occiput Anterior Placenta delivery description: Spontaneous Cord Vessel Description: 3 Vessels score (1 min): 9 score (5 min): 9 weight: 3704 kg Plan for aftercare: Routine care
[2023-05-24 18:25] VITALS: TEMP 38.1
[2023-05-24] MEDS: ACETAMINOPHEN 325 MG TABLET 650 MG PO (18:25)
[2023-05-25] MEDS: DERMOPLAST SPRAY 20% 60 ML 1 SPRAY TOP (01:35)
[2023-05-25] MEDS: LANOLIN OINT 7 GM 1 APPLIC TOP (01:35)
[2023-05-25] MEDS: IBUPROFEN 600 MG TABLET PO (01:35)
--- NOTE | 2023-05-25 14:53 | P.DS_ITS ---
Discharge Providers Provider Date of admission: 05/24/23 07:58 Discharge Date: 05/25/23 Primary care physician: Raimundo Mills MD Consults: 05/24/23 08:17 Consult to Anesthesiology Urgent Comment: Consulting Provider: Anesthesiologist Reason for consultation: Epidural Has provider been notified: No 05/25/23 15:27 Consult to Salesperson Florist Supplies Routine Comment: Discharge provider: Bonita Lovell CNM, ARNP Summary Hospital Course Date Patient Seen: 05/25/23 Time Patient Seen: 14:54 Diagnoses: Normal following vaginal delivery. . Hospital Course: Normal day 1 . Peripartum Data Delivery Method: Natural Vaginal Laceration Description: None Justice 1: Gender: Female Disposition of : home Discharge Diagnosis (1) Encounter for full-term uncomplicated delivery: Start Date: 05/24/23 Start Time: 14:43 Status: Acute (2) Breast feeding status of mother: Start Date: 05/24/23 Start Time: 14:43 Status: Acute Status at Discharge Cognitive/behavioral status at discharge: at baseline, oriented Functional status at discharge: independent ambulation Overall status at discharge: patient is back to baseline Time Spent with Patient Time attestation: Total time spent providing and/or coordinating discharge services: 2hr Specific discharge activities: minimal activity for 2 weeks Objective Labs 05/24/23 09:18 Exam Vital Signs (past 8 hours): BP: 105/65 HR: 70 bpm T: 97.6 F temporal Other: Fundus firm at U-1, midline. Lochia scant Perineum intact with minimal edema Discharge Plan Discharge Plan Patient Disposition: Home Discharge orders & Medications Prescriptions: Continued magnesium 200 mg tablet 200 mg PO DAILY Probiotic (B. coagulans) 10 billion cell capsule,delayed release(DR/EC) PO DAILY DHA 200 mg capsule PO Discontinued prenat.vits,page,grm-dshr-cgadt Tablet 1 tab PO DAILY Follow up/Referrals: Bonita Lovell CNM, ARNP [Advanced Rest Room Matron] - 2 Weeks (and six weeks as scheduled.) Raimundo Mills MD [Primary Care Provider] - Diet/Activity/Treatments Diet: Diet as Tolerated and Regular Diet comment: increase fiber and fluid to promote easy BMs Activity: Minimal activity for 2 weeks Cold/Heat Therapy: as needed Skin/Wound/Dressing Care Skin care: usual care Report to your healthcare provider any signs of infection, such as:: chills, fever, increased pain, unusual drainage and unusual redness Visit Report/Discharge Packet Stand Alone Forms: Discharge: Care, Patient Portal/API Discharge Data Primary Care Provider: Raimundo Mills Attending Provider: Hailey Dickerson Admdorina Date/Time: 05/24/23 07:58
== END 2023-05-25 15:10 | disposition home or self-care (01) | DRG 807 ==
PROVIDERS: Advanced Practice Midwife; Admitting Provider Nurse Practitioner Obstetrics & Gynecology; PCP Family Medicine; Referring Provider Nurse Practitioner Obstetrics & Gynecology; Visit Provider Nurse Practitioner Obstetrics & Gynecology
DX: O76 Abnormality in fetal heart rate and rhythm complicating labor and delivery (principal); Z37.0 Single live birth; Z3A.40 40 weeks gestation of pregnancy
CPT/HCPCS: 59050; 85025; 86850; 86900; 86901; G0378; G0379; J2405; J2590; J3010

== ENCOUNTER → 2024-12-25 10:59 | Outpatient (CLI) | payer OTHER, SELFPAY ==
--- NOTE | 2024-12-25 11:00 | DI.US.S_ITS ---
PROCEDURE: US OB >= 14 WEEKS FETUS INDICATIONS: 20 WEEKS OUTSIDE/PRIOR DATING DATA: Last menstrual period (LMP): 08/01/2024 LMP-based estimated date of delivery (CHRIS): 05/14/2025 First dating scan (date and location): 10/06/2024 Estimated date of delivery (CHRIS) from first dating scan: 05/14/2025. TECHNIQUE: Real-time scanning was performed of the fetus, with image documentation and biometric measurements. Endovaginal scanning: Not performed COMPARISON: [facility], OB >= 14 WEEKS FETUS, 01/03/2023, 9:57. FINDINGS: General: A single living intrauterine gestation is present. Presentation: Variable Placenta: Placental position is anterior, without previa. Amniotic fluid index: 13.2 cm, normal range is 5-24 cm. Single deepest vertical pocket is 4.3 cm. heart rate: 149 beats per minute. Maternal cervical canal: Closed and measures 4.7 cm long. Normal lower limit is 2.5 cm. biometrics: Biparietal diameter: 4.9 cm, 20 weeks, 6 days. Head circumference: 18.2 cm, 20 weeks, 4 days. Abdominal circumference: 15.5 cm, 20 weeks, 5 days Femur length: 3.3 cm, 20 weeks, 3 days. Clinically estimated gestational age: 20 weeks, 0 day. Composite gestational age from present scan: 20 weeks, 5 days. Estimated weight and percentile: 362 g, 77%. Anatomic survey: Neuro: Ventricles are non-dilated at less than 10 mm. Cisterna magna is normal at 3-11 mm. Cerebellum is normal in size and morphology. Nuchal skin fold: Normal at less than 6 mm between 14-21 weeks gestational age. Face: Nose and lips, facial profile are normal. Spine: Not well seen due to position. Heart: 4-chambered heart is present, with normal ventricular outflow tracts. Echogenic focus is noted within left ventricle. Diaphragm: Diaphragm is intact. Stomach: Left-sided stomach is present. Kidneys: No hydronephrosis. Normal is less than 5 mm in 2nd trimester, less than 7 mm in 3rd trimester. Cord: 3-vessel cord has orthotopic insertion. Bladder: Normal in size. Extremities: All 4 extremities identified. IMPRESSION: 1. Single live intrauterine gestation with fetus in variable presentation. heart rate is 149 beats per minute. Normal ALAN at 13.2 cm. 2. Normal growth. Estimated weight is at 77%. 3. spine is not well seen due to position. Echogenic focus is noted in left ventricle suggest sonographic follow-up. 4. Rest of the anatomic survey is normal. We strive to produce accurate, complete, and clear reports of imaging services. To assist us in improving patient care, this report was composed using standard report templates and voice recognition software. Therefore, it may contain abnormal punctuation, insertions and/or omissions. Occasional wrong-word or sound-alike substitutions may occur. Though we review the report and make efforts to correct it, we do recommend that the report be read carefully in proper context to recognize any text inaccuracies. Dictated by: Narciso Su M.D. on 12/26/2024 at 0:53 Approved by: Narciso Su M.D. on 12/26/2024 at 1:08
== END ==
LOC: US 10:59
PROVIDERS: PCP Family Medicine; Referring Provider Advanced Practice Midwife; Visit Provider Advanced Practice Midwife
DX: Z34.92 Encounter for supervision of normal pregnancy, unspecified, second trimester (principal); Z3A.20 20 weeks gestation of pregnancy
CPT/HCPCS: 76811

== ENCOUNTER → 2025-01-22 09:16 | Outpatient (CLI) | payer OTHER, SELFPAY ==
--- NOTE | 2025-01-22 09:17 | DI.US.S_ITS ---
PROCEDURE: US OB FOLLOW UP INDICATIONS: LT VENTRICLE EIF. SPINE NOT SEEN. GROWTH OUTSIDE/PRIOR DATING DATA: Last menstrual period (LMP): 08/01/2024 LMP-based estimated date of delivery (CHRIS): 05/14/2025 First dating scan (date and location): 10/06/2024 Estimated date of delivery (CHRIS) from first dating scan: 05/14/2025 The calculations are made using the working CHRIS of 05/14/2025. TECHNIQUE: Real-time scanning was performed of the fetus, with image documentation and biometric measurements. Endovaginal scanning: Not performed COMPARISON: None. FINDINGS: General: A single living intrauterine gestation is present. Presentation: Breech Placenta: Placental position is anterior, without previa. Amniotic fluid index: 17.7 cm, normal range is 5-24 cm. Single deepest vertical pocket is 6.1 cm. heart rate: 137 beats per minute. Maternal cervical canal: Closed and measures 5.6 cm long. Normal lower limit is 2.5 cm. biometrics: Biparietal diameter: 6.2 cm, 25 weeks, 2 days. Head circumference: 23 cm, 25 weeks, 0 day. Abdominal circumference: 20.1 cm, 24 weeks, 5 days. Femur length: 4.3 cm, 24 weeks, 0 day. Clinically estimated gestational age: 24 weeks, 0 day. Composite gestational age from present scan: 24 weeks, 5 days. Estimated weight and percentile: 709 g, 68% Other: spine is visualized and is within normal limits. Echogenic focus is noted in left ventricle. Right renal pelviectasis is seen measures up to 4.6 mm in diameter. IMPRESSION: 1. Single live intrauterine gestation with fetus in breech presentation. heart rate is 137 beats per minute. Normal ALAN at 17.7 cm. 2. Estimated weight is at 68%. 3. Echogenic focus again noted in left ventricle. spine is visualized and is within normal limits. Minimal right renal pelviectasis. We strive to produce accurate, complete, and clear reports of imaging services. To assist us in improving patient care, this report was composed using standard report templates and voice recognition software. Therefore, it may contain abnormal punctuation, insertions and/or omissions. Occasional wrong-word or sound-alike substitutions may occur. Though we review the report and make efforts to correct it, we do recommend that the report be read carefully in proper context to recognize any text inaccuracies. Dictated by: Narciso Su M.D. on 01/22/2025 at 12:04 Approved by: Narciso Su M.D. on 01/22/2025 at 12:06
== END ==
LOC: US 09:17
PROVIDERS: PCP Family Medicine; Referring Provider Advanced Practice Midwife; Visit Provider Advanced Practice Midwife
DX: O28.3 Abnormal ultrasonic finding on antenatal screening of mother (principal); Z3A.24 24 weeks gestation of pregnancy
CPT/HCPCS: 76816